=== PATIENT | female | born 1955 | race African-American/Black ===

== ENCOUNTER 2021-04-07 05:21 | Emergency (ER) | payer OTHER, BC ==
[2021-04-07 05:38] VITALS: BP 152/90; PULSE 79; TEMP 97.9; BMI 28.8
[2021-04-07] MEDS ORDERED: KETOROLAC TROMETHAMINE 30 MG/1 ML VIAL IM ONE (05:55)
[2021-04-07] MEDS ORDERED: KETOROLAC TROMETHAMINE 30 MG/1 ML VIAL ONE (06:10)
== END 2021-04-07 06:37 | disposition home or self-care (01) ==
LOC: JER 05:21
PROC: 3E0233Z Introduction of Anti-inflammatory into Muscle, Percutaneous Approach (ICD-10-PCS; principal; 2021-04-07)
DX: M25.561 Pain in right knee (principal); W00.0XXA Fall on same level due to ice and snow, initial encounter
CPT/HCPCS: 73560-TC-RT-FY; 99284-25